=== PATIENT | female | born 1985 | race Caucasian/White ===

== ENCOUNTER 2019-07-26 14:14 | Emergency (ER) | payer MEDICAID ==
[~2019-07-26] VITALS: Ht 161.3 cm; Wt 58.0 kg
[2019-07-26 14:18] VITALS: BP 118/73
[2019-07-26] MEDS ORDERED: IBUP-1984 PO (15:11)
[2019-07-26] MEDS ORDERED: diphenhydrAMINE 25mg capsule PO ONE (15:40)
--- NOTE | 2019-07-26 15:53 | NUR ---
Attempted to discharge pt. After reviewing aftercare and Rx instruction, pt refused to sign stating that she needed to speak with provider. Pt requesting blood work to "check septic levels" secondary to feeling as though the José Luis wrap was placed too tightly. GEORGE Roach made aware.
== END 2019-07-26 16:02 | disposition home or self-care (01) ==
LOC: ER 14:14
DX: M79.672 Pain in left foot (principal); F15.90 Other stimulant use, unspecified, uncomplicated; Z88.1 Allergy status to other antibiotic agents; Z88.8 Allergy status to other drugs, medicaments and biological substances; W22.8XXA Striking against or struck by other objects, initial encounter; Y93.89 Activity, other specified; Y92.89 Other specified places as the place of occurrence of the external cause; Y99.9 Unspecified external cause status
CPT/HCPCS: 73630; 99283; Q0163

== ENCOUNTER 2020-06-26 18:31 | Emergency (ER) | payer MEDICAID ==
[~2020-06-26] VITALS: Ht 160 cm; Wt 59.1 kg
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
--- NOTE | 2020-06-26 19:37 | NUR ---
amilcar-dormitory supervisor of [facility] is sending pt advocate to ER(frances).
[2020-06-26] MEDS ORDERED: metroNIDAZOLE 500mg tablet PO ONE (21:00)
[2020-06-26] MEDS ORDERED: CefTRIAXone 250MG IM Kit w/LIDOcaine IM ONE (21:00)
[2020-06-26] MEDS ORDERED: azithromycin 250mg tablet PO ONE (21:00)
[2020-06-26 21:06] LABS: URINE HCG NEGATIVE (NEG)
[2020-06-26 21:13] LABS: CLARITY,URINE SLIGHTLY CLOUDY (Clear); COLOR,URINE YELLOW (Yellow); GLUCOSE, URINE NEGATIVE (Neg); KETONES,URINE NEGATIVE (Neg); LEUKOCYTE ESTERASE ,URINE SMALL (Neg); NITRITES, URINE NEGATIVE (Neg); OCCULT BLOOD,URINE MODERATE (Neg); PH,URINE 5.5 (4.8-8.0); PROTEIN,URINE TRACE mg/dl (Neg)
[2020-06-26 21:24] LABS: UA COLLECTION TYPE OTHER
[2020-06-26 21:26] LABS: BACTERIA,URINE FEW /HPF (Neg); RBC,URINE 0-2 /HPF (0-2); SQUAMOUS EPITHELIAL CELL,UR FEW /LPF (FEW); WBC,URINE 20-30 /HPF (0-4)
[2020-06-26 21:27] LABS: CAL OXALATE CRYSTALS FEW /HPF (NEGATIVE); MUCUS STRANDS MODERATE /LPF (Neg)
[2020-06-26] MEDS ORDERED: BACI1PAC7 TP (22:14)
--- NOTE | 2020-06-26 23:30 | NUR ---
2029: Pt gave verbal consent for [facility] exam[facility] Dirty catch sent to lab. 2044: Order for STD prophylactic meds obtained from RANDAL Gorman who had completed medical exam while awaiting SANE arrival. Pt indicated she did not want Pt Advocate present during exam. Pt advocate will provide lodging upon completion of exam. 2049: Written consent for SART obtained after process explained & questions answered. Pt is very interested in be being provided food more than exam. Thoughts are tangential. Exam started. 2149: EDMD Gorman reviewed genitalia findings affirming presence of abscesses. Stella and jello provided. 2210: Ordered meds adminstered. Jasmin @ [facility] notified of pt referral. 2240: Pt dc'd after refusing shower offer saying she'll take one @ motel. Taxi provided pt who was escorted to lobby where [facility] PCT would maintain line of sightof pt until taxi arrived.
[2020-06-27 01:12] VITALS: BP 127/71
== END 2020-06-26 22:41 | disposition home or self-care (01) ==
LOC: ER 18:32 → EEVIPCON 18:32 → ER 22:41
DX: S30.814A Abrasion of vagina and vulva, initial encounter (principal); T76.21XA Adult sexual abuse, suspected, initial encounter; Y08.89XA Assault by other specified means, initial encounter; Y93.89 Activity, other specified; Y92.89 Other specified places as the place of occurrence of the external cause; Y99.8 Other external cause status; F15.90 Other stimulant use, unspecified, uncomplicated; Z88.2 Allergy status to sulfonamides; Z88.8 Allergy status to other drugs, medicaments and biological substances; Z79.899 Other long term (current) drug therapy
CPT/HCPCS: 36415; 81001; 81025; 87491; 87591; 96372; 99284; J0696; 99283

== ENCOUNTER 2024-04-09 09:42 | Emergency (ER) | payer MEDICAID, OTHER ==
[~2024-04-09] VITALS: Ht 160 cm; Wt 61.4 kg
[2024-04-09 09:47] VITALS: BP 141/94; PULSE 101; RESP 18; TEMP 97.3; O2SAT 98
[2024-04-09] MEDS ORDERED: DOXY-460 PO (10:13)
[2024-04-09] MEDS: CefTRIAXone 1000mg IM Kit (w/lidocaine diluent) IM ONE (10:24)
[2024-04-09 10:37] LABS: BILIRUBIN,URINE NEGATIVE (Neg); CLARITY,URINE SLIGHTLY CLOUDY (Clear); COLOR,URINE YELLOW (Yellow); GLUCOSE, URINE NEGATIVE (Neg); KETONES,URINE NEGATIVE (Neg); LEUKOCYTE ESTERASE ,URINE NEGATIVE (Neg); NITRITES, URINE POSITIVE (Neg); OCCULT BLOOD,URINE NEGATIVE (Neg); PH,URINE 5.5 (4.8-8.0); PROTEIN,URINE NEGATIVE (Neg); UROBILINOGEN,URINE 0.2 E.U/dL (0.2-1.0)
[2024-04-09 10:38] LABS: UA COLLECTION TYPE CLN CATCH MIDSTREAM; URINE HCG NEGATIVE (NEG)
[2024-04-09 10:44] LABS: SQUAMOUS EPITHELIAL CELL,UR MANY /LPF (FEW)
[2024-04-09 10:45] LABS: BACTERIA,URINE 4+ /HPF (Neg); RBC,URINE NONE SEEN /HPF (0-2)
[2024-04-11 07:19] LABS: CHLAMYDIA TRACHOMATIS, NAA Negative (Negative)
== END 2024-04-09 10:27 | disposition home or self-care (01) ==
LOC: ER 09:45
DX: N73.0 Acute parametritis and pelvic cellulitis (principal); A54.00 Gonococcal infection of lower genitourinary tract, unspecified; F15.90 Other stimulant use, unspecified, uncomplicated; Z88.2 Allergy status to sulfonamides; Z79.2 Long term (current) use of antibiotics
CPT/HCPCS: 36415; 81001; 81025; 87491; 87591; 96372; 99283; J0696